=== PATIENT | female | born 1960 | race Caucasian/White ===

== ENCOUNTER 2021-03-04 15:45 | Emergency (ER) | payer BC ==
[~2021-03-04] VITALS: Ht 157.4 cm; Wt 79.4 kg
[2021-03-04] MEDS ORDERED: HYDROCODONE-AC1 EAC1 PO (18:03)
== END 2021-03-04 18:12 | disposition home or self-care (01) ==
LOC: ED 15:45
DX: S20.20XA Contusion of thorax, unspecified, initial encounter (principal); X58.XXXA Exposure to other specified factors, initial encounter; Y93.89 Activity, other specified; Y92.89 Other specified places as the place of occurrence of the external cause; Y99.8 Other external cause status